=== PATIENT | male | born 2005 | race African-American/Black ===

== ENCOUNTER 2025-02-20 10:25 | Emergency (ER) | payer OTHER, BC, SELFPAY ==
[2025-02-20] VITALS (12 sets, daily range): BP systolic 130–190; BP diastolic 58–112; PULSE 100–138; RESP 17–28; TEMP 36.3–37.4; O2SAT 95–99; BMI 39.4
--- NOTE | ~2025-02-20 | CT_ITS ---
EXAMINATION: CT SOFT TISSUE NECK WITH CONTRAST CLINICAL INFORMATION: Drooling, change in voice. Question peritonsillar abscess COMPARISON: None available. TECHNIQUE: Following the intravenous administration of 85 mL of Omnipaque 350 intravenous contrast, helical imaging was performed in the axial plane with generation of coronal and sagittal reformatted images. This CT examination was performed using dose optimization techniques as appropriate, variously including the following: *Automated exposure control *Adjustment of mA and/or kV according to patient size (this includes techniques or standardized protocols for targeted exams where dose is matched to indication/reason for exam; i.e. extremities or head) *Use of iterative reconstruction technique DLP: 940 mGy/cm. FINDINGS: There is mild enlargement of left pharyngeal tonsils and peritonsillar hypodensity consistent abscess. It measures 2.8 x 2.4 x 3.5 cm. There is mild [id number] midline shift. The right tonsils appear normal. There is moderate hypertrophy of the adenoids along the roof of the nasopharynx. There is moderate to significant narrowing of the nasopharyngeal airway. There are reactive left submandibular and bilateral neck neck lymph nodes . Largest level 3 lymph node measures 2.1 x 2.2 cm on sagittal image 14/7. Visualized base and the floor of the tongue and oral cavity is unremarkable.: Bilateral parotid, submandibular glands and the thyroid lobes are symmetrical and normal. Bilateral paranasal sinuses and mastoid air cells are aerated and clear. Bilateral optic globe, optic nerves and the periorbital soft tissues. Visualized brain parenchyma and the skull base appears unremarkable. The nasal cavity and laryngeal airway appears preserved. The prevertebral and paravertebral soft tissues are normal. There is normal enhancement in the major vasculature of the neck including the carotid artery and jugular vein. Visualized maxillofacial, mandibular bones and the TM joints are normal. The cervical spine is grossly unremarkable. CT/CT soft tissue neck w IV con IMPRESSION: Moderate-sized left peritonsillar abscess. There is compromise of nasopharyngeal airway. Moderate enlargement of the adenoids is seen as well. Reactive left submandibular and pericarotid/jugular space lymph nodes. Results were conveyed to Dr. Melba Delong by phone at 3:12 PM Electronically signed by: Jensen Plunkett MD 02/20/2025 03:14 PM [facility]
--- NOTE | 2025-02-20 11:01 | ED_ITS ---
HPI - General Adult General Chief complaint: Upper Respiratory Symptoms Stated complaint: swollen tonsils Time Seen by Provider: 02/20/25 11:05 History of Present Illness ED Provider: Luz Moran NP [facility] narrative: 19-year-old male otherwise healthy presents to the ED from urgent care with chief complaint of a sore throat ongoing for about 3 days. Patient reports that 3 days ago he noted that the left side of his throat was very uncomfortable. Two days ago he noted that his voice changed, and felt difficulty talking. Reports he could not sleep last night due to significant pain in the throat, and he could not lie flat. Today he noted that he could not stop spitting up his own secretions the, and could not swallow them. She was seen at urgent care, who recommended he come to the ED for further evaluation. He is unable to swallow drinks, food x2 days, and is reporting poor PO intake due to this. He denies any recent illnesses otherwise. No fever, chills. No chest pain or pressure, shortness of breath. No abdominal pain, nausea or vomiting, urinary complaints. Patient does use marijuana frequently, declines any alcohol use. Related Data Allergies Allergy/AdvReac Type Severity Reaction Status Date / Time No Known Allergies Allergy Verified 02/20/25 10:56 Review of Systems 2 Review of Systems: ROS is otherwise negative unless mentioned in HPI. [facility] Social History Social History Smoked in Last 30 Days: No Use of substances other than those prescribed or required for medical reasons: Yes Substance Use Type: Marijuana Advance Directives: No Advance Directives Information Provided: Yes Physical Exam ED Exam Exam: Nursing notes and vital signs reviewed. Constitutional: Well-appearing, NAD. Alert. Oriented X3. Eyes: EOMI. ENT: Oropharynx very difficult to visualize due to significant trismus. Uvula is pointing towards the right, there appears to be a large abscess peritonsillar only on the left. Neck: Normal inspection. Neck supple. Cervical adenopathy, L>R. CVS: Normal heart rate and rhythm. Pulses normal. Respiratory: No respiratory distress. Breath sounds normal. Abdomen: Soft, nontender, nondistended. Skin: Skin warm and dry. Normal skin color. Extremities: No lower extremity edema. Neuro: Oriented X 3. No motor deficit. Vital Signs: Vital Signs - 24 hr 02/20/25 16:00 12/23/25 17:48 Temperature 97.5 F 97.5 F Pulse Rate 114 H 114 H Respiratory Rate 20 20 Blood Pressure 152/71 H 152/71 H Pulse Oximetry 97 97 Oxygen Delivery Method Room Air Room Air BMI result Body Mass Index 39.4 Course Course Course Narrative: TEMITOPE: 19-year-old male presents to ED for 3 days of sore throat. Patient has drooling, spitting not able to talk. Oral exam select peritonsillar abscess with exudates. Patient is brought back to the ED immediately steroids clindamycin cat scan labs ordered. Reevaluation(s) Reevaluation #1: 11:52 AM 02/20/2025 (Dr. Tom Sanchez): I was asked to evaluate the patient with advanced care provider, patient has had potato voice, tonsillar swelling, since yesterday not tolerating oral liquids, 3 days ago stopped eating, did not present until now, he has a degree of trismus, he is swallowing saliva but having difficulty, I had the patient moved to critical care bed, explained to the patient and his father that I am planning to perform incision and drainage of peritonsillar abscess and we will re-evaluate him afterwards determine whether further imaging is indicated such CT with IV contrast to evaluate for epiglottitis etc., consent obtained and also make sure to include that this may be complicated he may need to be intubated this may need to be cricothyrotomy, markings we will be done prior to the procedure, I ordered swish and spit with lidocaine, equipment at bedside, I plan to use glide scope make either spinal needle incisions or 11 blade incisions, drain as much pus as possible hoping that will release some of the pressure and improve her managing secretions, thereafter we will make a determination whether ENT needs to be involved but by find that go ahead with I and D is the primary step to management at this juncture. 12:31 PM 02/20/2025 (Dr. Tom Sanchez): Incision and drainage performed by this provider with at least 7 cc of purulent material possibly more that was drained out after 11 blade incisions were made patient tolerated procedure well we will obtain CT he is able to speak better and was able to tolerate oral liquids Medications Administered Discontinued Medications Generic Name Dose Route Start Last Admin Trade Name Freq PRN Reason Stop Dose Admin Dexamethasone Sodium Phosphate 10 mg 02/20/25 10:56 12/23/25 11:22 Dexamethasone Sod Phosphate 10 Mg/Ml Vial IVPUSH 02/20/25 10:57 10 mg ONCE ONE Administration Epinephrine 0.5 ml 02/20/25 11:25 02/20/25 11:38 Racepinephrine Hcl 0.5 Ml Vial.Neb INHALE 02/20/25 11:26 0.5 ml ONCE ONE Administration Ampicillin Sodium/Sulbactam 100 mls @ 200 mls/hr 02/20/25 11:13 02/20/25 12:19 Sodium 3 gm/ Sodium Chloride IV 02/20/25 11:42 Infused ONCE ONE Infusion Sodium Chloride 1,000 mls @ 999 mls/hr 02/20/25 11:13 02/20/25 12:25 Ns IV 02/20/25 12:13 Infused .Q1H1M ONE Infusion Acetaminophen 1,000 mg in 100 mls @ 400 mls/hr 02/20/25 11:13 02/20/25 11:56 Ofirmev IV 02/20/25 11:27 Infused ONCE ONE Infusion Iohexol 100 ml 02/20/25 13:31 02/20/25 13:31 Iohexol 350 Mg/Ml 100 Ml Infus..Btl IV 02/20/25 13:32 85 ml ONCE ONE Administration Lidocaine HCl 15 ml 02/20/25 11:25 02/20/25 11:56 Lidocaine Hcl Viscous 2 % 15 Ml Solution MUCOUS MEM 02/20/25 11:26 15 ml ONCE ONE Administration Lidocaine/Epinephrine 10 ml 02/20/25 11:58 02/20/25 12:08 Lidocaine Hcl 1%/Epi 1:100,000 10 Ml Vial INFILTRATI 02/20/25 11:59 10 ml ONCE ONE Administration Midazolam HCl 2 mg 02/20/25 12:17 02/20/25 12:06 Midazolam Hcl 2 Mg/2 Ml Vial IVPUSH 02/20/25 12:18 2 mg ONCE ONE Administration Morphine Sulfate 2 mg 02/20/25 12:16 02/20/25 12:22 Morphine Sulfate 4 Mg/Ml Cartridge IVPUSH 02/20/25 12:17 2 mg ONCE ONE Administration Protocol Procedures Abscess I/D Site: other (peritonsillar) Side (if applicable): left Sedation/analgesia: midazolam Local Anesthetic: lidocaine 1%, bupivacaine 0.25% and with epi Amount of anesthesia used (mL): 4 Technique: incised with blade Sent for culture/gram staining?: No Irrigation: Yes Packing used?: none Complications: bleeding Medical Decision Making Medical Decision Making MDM Narrative: Upon my initial assessment of this patient, he has a hot potato voice, he is complaining of a sore throat, and is having difficulty opening his mouth. Trismus is present. I used the bottom of a speculum to press down on his tongue to further assess the oropharynx, which has significant secretions as well as edema specifically on the left, with what appears to be a peritonsillar abscess that is quite large. The uvula is pointing towards the right. He is spitting up his secretions into an emesis basin. I discussed with the attending physician this patient's case. With concern for his airway given the size of the abscess, plan for racemic epinephrine nebulized, as well as lidocaine swish/gargle to the back of the throat as tolerated, and attempt for I&D by the attending physician on this chart. I have ordered Decadron IVP, Unasyn 3g IV, as well as Tylenol IV, IV fluids. Will medicate and attempt I&D. Patient consented. 3:23 PM-- the patient does report feeling significantly better after the I&D. See procedure note. He has a leukocytosis at 20.5, with an active infection. He was already given antibiotics. Lactic acid is flat. Vital signs have been stable while in the ED. He remains afebrile, with no hypoxia. I do not have concern for sepsis at this time. The CT report does show a moderate sized left peritonsillar abscess (It measures 2.8 x 2.4 x 3.5 cm. There is mild dhcw-tf-awget midline shift.) and per the radiology read with concern for compromise of the nasopharyngeal airway. However, the patient again is doing much better after the I&D. He does not clinically have airway compromise. His voice has significantly improved, he feels as though he can not talk and breathe much better as well. However, he will need transfer to a facility with ENT capabilities as we do not have access to this, as well as probable admission for airway management and monitoring, as he may require a subsequent I&D as well. Plan to first contact [facility]. 3:27 PM-- [facility] is closed to transfers. Will attempt [facility]. 4:00 PM-- There is some issue with his insurance for [facility]. Will attempt [facility]. He is OK with out of state transfer. 4:09 PM -- I spoke with the transfer center, patient is accepted to the [facility] facility. [place] accepting ED to ED transfer is Dr. Grossman. Patient is agreeable and consents to transfer. Ambulance booked by secretarial staff. Differential Diagnosis Differential Diagnoses: The differential diagnosis associated with the presentation includes strep pharyngitis, ELECTRONIC SYSTEM ENGINEER, viral illness, epiglottitis Admission/Observation Consideration of admission/observation: Escalation of care including admission/observation considered We will need transfer to a facility capable of ENT accepted to [facility] Lab Data MDM Lab Attestation statement: I reviewed the patient's lab results. (Leukocytosis to 20.5.) 02/20/25 11:23 02/20/25 11:23 Labs: Lab Results 02/20/25 Range/Units 11:23 WBC 20.5 H (4.8-10.8) X10*3/uL RBC 5.41 (4.60-5.80) X10*6/uL Hgb 15.9 (14.0-18.0) g/dl Hct 46.9 (42.0-52.0) % MCV 86.7 (80.0-98.0) fL MCH 29.4 (27.0-33.0) pg MCHC 33.9 (31.0-36.0) g/dl RDW 12.0 (11.0-16.0) % Plt Count 410 H (160-400) X10*3/uL MPV 9.2 L (9.4-12.4) fL Immature Gran % (Auto) Cancelled Neut % (Auto) Cancelled Lymph % (Auto) Cancelled Tripp % (Auto) Cancelled Eos % (Auto) Cancelled Baso % (Auto) Cancelled Lymph # (Auto) Cancelled Tripp # (Auto) Cancelled Eos # (Auto) Cancelled Baso # (Auto) Cancelled Abs Immat Gran (auto) Cancelled Absolute Neuts (auto) Cancelled Absolute Nucleated RBC 0.000 (0.0-0.012) X10*3/uL Nucleated RBC % (auto) 0.0 (0.0-0.2) /100WBC Neutrophils % (Manual) 80 H (45-73) % Band Neutrophils % 0 L (3-5) % Lymphocytes % (Manual) 9 L (20-40) % Monocytes % (Manual) 11 (2-11) % Abs Neuts (Manual) 16.4 H (2.0-8.3) X10*3/uL Lymphocytes # (Manual) 1.8 (1.2-4.9) X10*3/uL Monocytes # (Manual) 2.3 H (0.1-1.2) X10*3/uL Toxic Vacuolation PRESENT Platelet Estimate NORMAL (NORMAL) Large Platelets PRESENT Plt Morphology Comment NOTED RBC Morphology NOTED Tear Drop Cells 2+ (3-5) /OIF Silverio Cells 1+ (0-2) /OIF Acanthocytes (Spur) 1+ (0-2) /OIF Sodium 142 (135-145) mmol/L Potassium 3.4 (3.3-5.1) mmol/L Chloride 104 (96-108) mmol/L Carbon Dioxide 26 (22-29) mmol/L Anion Gap 15 (12-20) BUN 10 (9-16) mg/dL Creatinine 0.88 (0.5-1.4) mg/dL Estim Creat Clear Calc 186.4 Estimated GFR > 60 Random Glucose 100 (60-115) mg/dL Lactic Acid 0.9 (0.5-2.0) mmol/L Calcium 10.7 H (8.4-10.2) mg/dL Total Bilirubin 0.8 (0.0-1.0) mg/dL AST 26 (5-37) U/L ALT 15 (0-40) U/L Alkaline Phosphatase 77 (39-117) U/L Total Protein 9.3 H (6.5-8.0) g/dL Albumin 4.9 (3.5-5.0) g/dL Monoscreen Negative (Negative) Radiology Impression Discussion of test interpretation with radiology: I have reviewed the radiologist's reading. Radiologist Impression: CT/CT soft tissue neck w IV con IMPRESSION: Moderate-sized left peritonsillar abscess. There is compromise of nasopharyngeal airway. Moderate enlargement of the adenoids is seen as well. Reactive left submandibular and pericarotid/jugular space lymph nodes. Results were conveyed to Dr. Melba Delong by phone at 3:12 PM Independent Historian Clinical information obtained from an independent historian. History obtained from or confirmed by: Parent (Dad at bedside) External Record Review External record reviewed: Outside ED record Call from Chronic Conditions None Social Determinants Patient?s care significantly limited by Social Determinants of Health including: Problems related to primary support group Critical Care Time Critical Care Time Critical Care Time: Yes Total Critical Care Time: 45 Attestation: Time is exclusive of separately billable procedures. Time includes: direct patient care, patient reassessment, coordination of patient care, interpretation of data (laboratory data, pulse oximetry, arterial blood gases and chest xrays), review of patient's medical records, medical consultation and documentation of patient care. Procedures excluded from critical care time: central intravenous line placement and electrocardiography. Discharge Plan Discharge Clinical Impression: Abscess, peritonsillar Patient Disposition: [facility] Transfer Details: [facility], ER to ER-- Dr. Grossman Instructions: Peritonsillar Abscess (ED) Interventions: Acute Care Transfer Worksheet (ED) Last Done: 02/20/25 17:48 Discharge Date/Time: 02/20/25 17:49 Print Language: Fijian
[2025-02-20 11:31] LABS: Hematocrit 46.9 % (42.0-52.0); Hemoglobin 15.9 g/dl (14.0-18.0); Mean Corpuscular HGB Conc 33.9 g/dl (31.0-36.0); Mean Corpuscular Hemoglobin 29.4 pg (27.0-33.0); Mean Corpuscular Volume 86.7 fL (80.0-98.0); NRBC Abs Auto 0.000 X10*3/uL (0.0-0.012); NRBC Pct Auto 0.0 /100WBC (0.0-0.2); Platelet Count 410 X10*3/uL (160-400); Red Blood Count 5.41 X10*6/uL (4.60-5.80); White Blood Count 20.5 X10*3/uL (4.8-10.8)
[2025-02-20 11:49] LABS: Alanine Aminotransferase 15 U/L (0-40); Albumin Level 4.9 g/dL (3.5-5.0); Alkaline Phosphatase 77 U/L (39-117); Anion Gap 15 (12-20); Aspartate Amino Transferase 26 U/L (5-37); Blood Urea Nitrogen 10 mg/dL (9-16); Calcium 10.7 mg/dL (8.4-10.2); Carbon Dioxide 26 mmol/L (22-29); Chloride 104 mmol/L (96-108); Creatinine Clr Calc Pharmacy 186.4; Estimated Glomerular Filt Rate > 60; Potassium 3.4 mmol/L (3.3-5.1); Sodium 142 mmol/L (135-145); Total Protein 9.3 g/dL (6.5-8.0)
[2025-02-20] MEDS: Lidocaine HCl Viscous 2 % 15 ML SOLUTION MUCOUS MEM (11:56)
[2025-02-20 12:00] LABS: Lymphocytes Absolute Manual 1.8 X10*3/uL (1.2-4.9); Lymphocytes Percent Manual 9 % (20-40); Monocytes Absolute Manual 2.3 X10*3/uL (0.1-1.2); Monocytes Percent Manual 11 % (2-11); Neutrophils Percent Manual 80 % (45-73)
--- NOTE | 2025-02-20 12:00 | PC.NURSE ---
Procedure: Tonsilar abscess drainage Providers: Dr Rosa & Luz canoe inspector final RT: Antelmo RN: Libby Peck Tech: Luis Armando Pt remained awake and A&OX4 during procedure. Tolerated procedure well. Vitals monitor. sinus tach on monitor. Frequent suctioning done by VEHICLE DISMANTLER.
[2025-02-20 12:01] LABS: Acanthocytes 1+ (0-2) /OIF; Burr Cells 1+ (0-2) /OIF; Large Platelet PRESENT; RBC Morphology NOTED; Tear Drop Cells 2+ (3-5) /OIF; Toxic Vacuolation PRESENT
[2025-02-20 12:04] LABS: Band Neutrophils Percent 0 % (3-5); Neutrophils Absolute Manual 16.4 X10*3/uL (2.0-8.3)
[2025-02-20] MEDS: Lidocaine HCl 1%/Epi 1:100,000 10 ML VIAL INFILTRATI (12:08)
--- NOTE | 2025-02-20 12:28 | PC.NURSE ---
Pt tolerated procedure well. ULTRASOUND SPECIALIST had ordered 4mg of versed to have on hand, only used 2 mg of versed during procedure, the rest of medicine wasted. Pt is alert and oriented, breathing even and unlabored. VSS at this time. Plan for CT scan and reeval by provider. Pt able to swallow much more easy now, voice sounds less muffled.
[2025-02-20] MEDS: iohexoL 350 MG/ML 100 ML INFUS..BTL IV (13:31)
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
--- OUTSIDE RECORDS SUMMARY | 2025-02-20 13:46 | XMS_ITS | Clinical Summary ---
Author Organization [facility] Address [address] [place] [address] Phone Care Team Providers Care Display And Banner Designer Name Role Phone Physician, Pcp Unknown Primary Care Provider Asya vailable Allergies No known active allergies Medications No known medications Active Problems No known active problems Medical History Medical History Date Comments Asthma Social History Tobacco Use Types Packs/Day Years Used Date Smoking Tobacco: Never Smokeless Tobacco: Never Tobacco Cessation:Counseling Given: Not Answered Sex and Gender Information Value Date Recorded Sex Assigned at Not on file Legal Sex Male 2:38 PM EST Gender Identity Not on file Sexual Orientation Not on file Last Filed Vital Signs Vital Sign Reading Time Taken Comments Blood Pressure 120/72 09/30/2024 5:35 PM EDT Pulse 121 09/30/2024 5:35 PM EDT Temperature 36.8 C (98.2 F) 09/30/2024 5:35 PM EDT Respiratory Rate 18 09/30/2024 5:35 PM EDT Oxygen Saturation 99% 09/30/2024 5:35 PM EDT Inhaled Oxygen Concentration - - Weight 132 kg (290 lb) 09/30/2024 4:11 PM EDT Height 180.3 cm (5' 11 ) 09/30/2024 4:11 PM EDT Body Mass Index 40.45 09/30/2024 4:11 PM EDT Plan of Treatment Health Maintenance Due Date Last Done Comments HPV Vaccines (1 - Male 3-dos e series) 11/21/2018 Meningococcal B Vaccine (1 o f 2 - Standard) 2019 DTaP,Tdap,and Td Vaccines (1 - Tdap) 11/21/2022 Hepatitis B Vaccines (1 of 3 - 19+ 3-dose series) 11/21/2022 Depression Screening 03/01/2024 Annual Well Child Visit (3-2 1 years old) 09/30/2024 HIV Screening 09/30/2024 Hepatitis C Screening 09/30/2024 Social Influencers of Health Screening 09/30/2024 COVID-19 Vaccine (1 - 2024-2 6 season) 2024 Influenza Vaccine (#1) 2024 RSV Immunization Adult Patie nts (1 - 1-dose 75+ series) 11/21/2078 HIB Vaccines Aged Out No longer eligi ble based on patient's age to complete this topic Hepatitis A Vaccines Aged Out No long er eligible based on patient's age to complete this topic IPV Vaccines Aged Out No longer eligi ble based on patient's age to complete this topic MMR Vaccines Aged Out No longer eligi ble based on patient's age to complete this topic Meningococcal ACWY Vaccine Aged Out N o longer eligible based on patient's age to complete this topic Pneumococcal Vaccine: Pediat rics (0 to 5 Years) and At-Risk Patients (6 to 49 Years) Aged Out No longer eligible b ased on patient's age to complete this topic RSV Immunization Patients Un sharri 20 months Aged Out No longer eligible b ased on patient's age to complete this topic Varicella Vaccines Aged Out No longer eligible based on patient's age to complete this topic Insurance [facility] Care Teams Display And Banner Designer Relationship Specialty Start Date End Date Physician, Pcp Unknown PCP - General 09/30/24
--- NOTE | 2025-02-20 16:29 | PC.NURSE ---
Report given to RN at [facility]
== END 2025-02-20 17:49 | disposition short-term general hospital (02) ==
PROVIDERS: Physician Assistant; Emergency Provider Emergency Medicine
DX: J36 Peritonsillar abscess (principal); F12.90 Cannabis use, unspecified, uncomplicated; R11.0 Nausea
CPT/HCPCS: 36415; 42700; 70491; 80053; 83605; 85007; 85027; 86308; 87040; 96361; 96365; 96375; 99285; J0131; J0295; J1100; J2004; J2250; J2270; Q9967

== ENCOUNTER → 2025-02-20 10:56 | Outpatient (BNV) | payer OTHER, BC, SELFPAY | PROVIDERS: Emergency Provider Emergency Medicine; Visit Provider Radiology Diagnostic Radiology | DX: J36 Peritonsillar abscess (principal); J35.2 Hypertrophy of adenoids; R59.0 Localized enlarged lymph nodes | CPT/HCPCS: 70491 ==